=== PATIENT | female | born 1955 | race Caucasian/White ===

== ENCOUNTER → 2023-11-19 10:58 | Outpatient (REF) | payer MEDICARE, OTHER, SELFPAY ==
[2023-11-19 15:25] LABS: ALT (SGPT) 28 U/L (0-35); AST (SGOT) 28 U/L (14-36); Albumin 4.4 g/dl (3.5-5.0); Alkaline Phosphatase 92 U/L (38-126); Blood Urea Nitrogen 21 mg/dl (7-17); Carbon Dioxide 23 mmol/L (22-30); Chloride 104 mmol/L (98-107); Glucose 109 mg/dl (70-99); HDL Cholesterol 43 mg/dl; LDL Cholesterol, Calculated 73 mg/dl; Potassium 4.2 mmol/L (3.5-5.1); Sodium 135 mmol/L (135-145); Total Bilirubin 0.5 mg/dl (0.2-1.3); Total Cholesterol 149 mg/dl (50-199); Total Protein 6.7 g/dl (6.3-8.2); Triglyceride 165 mg/dl (10-149); Uric Acid 5.3 mg/dl (2.5-6.2); Very Low Density Lipoprotein 33 mg/dl (0-30); eGFR > 60.00
[2023-11-19 15:40] LABS: NT-proBNP 341 pg/ml
[2023-11-19 15:51] LABS: Microalbumin, Random Urine 1.3 mg/dl (0.6-1.7); Microalbumin/creatinine Ratio 5.7 mg/g
[2023-11-20 09:31] LABS: Glycohemoglobin (HgbA1c) 5.9 % (4.0-5.6)
[2023-11-23 09:54] LABS: Renin Activity Results 0.2 ng/mL/hr
== END ==
LOC: HWLAB 10:58
PROVIDERS: ATTENDING PHYSICIAN Internal Medicine Cardiovascular Disease; FAMILY PHYSICIAN Nurse Practitioner Primary Care; OTHER PHYSICIAN Internal Medicine Rheumatology; REFERRING PHYSICIAN Internal Medicine Cardiovascular Disease
DX: E11.9 Type 2 diabetes mellitus without complications (principal); N18.31 Chronic kidney disease, stage 3a; E53.8 Deficiency of other specified B group vitamins; E78.01 Familial hypercholesterolemia; R30.0 Dysuria; I42.2 Other hypertrophic cardiomyopathy; I10 Essential (primary) hypertension; I50.30 Unspecified diastolic (congestive) heart failure; Z86.39 Personal history of other endocrine, nutritional and metabolic disease; M10.9 Gout, unspecified
CPT/HCPCS: 36415; 80053; 80061; 82043; 82570; 83036; 83880; 84244; 84550; 87086

== ENCOUNTER → 2024-01-18 06:29 | Day surgery (SDC) | payer MEDICARE, OTHER, SELFPAY ==
[2024-01-18 07:08] LABS: Glucose - Point of Care 113 mg/dl (70-99)
== END ==
LOC: GI 06:29
PROVIDERS: ATTENDING PHYSICIAN Internal Medicine; FAMILY PHYSICIAN Nurse Practitioner Primary Care
DX: Z12.11 Encounter for screening for malignant neoplasm of colon (principal); K57.30 Diverticulosis of large intestine without perforation or abscess without bleeding; K64.9 Unspecified hemorrhoids; D12.3 Benign neoplasm of transverse colon; D12.4 Benign neoplasm of descending colon
CPT/HCPCS: 45385; 88305; 82962

== ENCOUNTER → 2024-04-24 11:11 | Outpatient (REF) | payer MEDICARE, OTHER, SELFPAY ==
[2024-04-24 15:54] LABS: ALT (SGPT) 27 U/L (0-35); AST (SGOT) 28 U/L (14-36); Albumin 4.5 g/dl (3.5-5.0); Alkaline Phosphatase 85 U/L (38-126); Blood Urea Nitrogen 21 mg/dl (7-17); Calcium 9.7 mg/dl (8.4-10.2); Carbon Dioxide 23 mmol/L (22-30); Chloride 102 mmol/L (98-107); Glucose 115 mg/dl (70-99); HDL Cholesterol 39 mg/dl; LDL Cholesterol, Calculated 84 mg/dl; Potassium 3.8 mmol/L (3.5-5.1); Sodium 135 mmol/L (135-145); Total Bilirubin 0.7 mg/dl (0.2-1.3); Total Cholesterol 162 mg/dl (50-199); Total Protein 6.8 g/dl (6.3-8.2); Triglyceride 198 mg/dl (10-149); Very Low Density Lipoprotein 39 mg/dl (0-30); eGFR > 60.00
[2024-04-24 16:10] LABS: Vitamin D, 25-OH*** 42.2 ng/mL (30-80)
[2024-04-24 16:11] LABS: Free T4 0.92 ng/dl (0.78-2.19)
[2024-04-24 16:13] LABS: % Basophils 0.8 % (0-2); % Eosinophils 2.3 % (0-6); % Immature Granulocytes 0.8 % (0-0.5); % Lymphocytes 24.9 % (20.5-51.1); % Monocytes 7.9 % (1.7-9.3); % Neutrophils 63.3 % (42.2-75.2); Absolute Eosinophils 0.1 10^3/uL (0-0.7); Absolute Monocytes 0.3 10^3/uL (0.1-0.6); Absolute Neutrophils 2.5 10^3/uL (1.4-6.5); Hematocrit 40.6 % (37.0-47.0); Hemoglobin 14.1 g/dL (12.0-16.0); Mean Corp Hgb Conc. 34.7 g/dL (33.0-37.0); Mean Corpuscular Hgb 29.6 pg (27.0-31.0); Mean Corpuscular Volume 85.1 fL (81.0-99.0); Nucleated Red Blood Cells % 0 %; Platelet Count 133 10^3/uL (130-400); Red Blood Cell Count 4.77 10^6/uL (4.20-5.40); Red Cell Dist. Width 13.4 % (11.5-14.5); White Blood Cell Count 3.9 10^3/uL (4.8-10.8)
[2024-04-24 17:04] LABS: TSH 2.03 uIU/ml (0.47-4.68)
[2024-04-25 12:30] LABS: Glycohemoglobin (HgbA1c) 5.6 % (4.0-5.6)
== END ==
LOC: HWLAB 11:11
PROVIDERS: ATTENDING PHYSICIAN Nurse Practitioner Primary Care
DX: I25.10 Atherosclerotic heart disease of native coronary artery without angina pectoris (principal); E78.01 Familial hypercholesterolemia; E03.8 Other specified hypothyroidism; E55.9 Vitamin D deficiency, unspecified; K21.9 Gastro-esophageal reflux disease without esophagitis; E11.9 Type 2 diabetes mellitus without complications
CPT/HCPCS: 36415; 80053; 80061; 82306; 83036; 84439; 84443; 85025

== ENCOUNTER → 2024-05-29 15:10 | Outpatient (REF) | payer MEDICARE, OTHER, SELFPAY | LOC: REG 15:10 | PROVIDERS: ATTENDING PHYSICIAN Nurse Practitioner Primary Care | DX: R19.7 Diarrhea, unspecified (principal) | CPT/HCPCS: 87045; 87046; 87324; 87328; 87329; 87427; 87449; 89055 ==

== ENCOUNTER → 2024-06-08 14:16 | Outpatient (REF) | payer MEDICARE, OTHER, SELFPAY ==
[2024-06-08 15:24] LABS: % Basophils 0.3 % (0-2); % Eosinophils 20.3 % (0-6); % Immature Granulocytes 0.3 % (0-0.5); % Lymphocytes 19.5 % (20.5-51.1); % Monocytes 4.5 % (1.7-9.3); % Neutrophils 55.1 % (42.2-75.2); Absolute Eosinophils 1.4 10^3/uL (0-0.7); Absolute Lymphocytes 1.4 10^3/uL (1.2-3.4); Absolute Monocytes 0.3 10^3/uL (0.1-0.6); Absolute Neutrophils 3.8 10^3/uL (1.4-6.5); Hematocrit 37.4 % (37.0-47.0); Hemoglobin 13.3 g/dL (12.0-16.0); Mean Corp Hgb Conc. 35.6 g/dL (33.0-37.0); Mean Corpuscular Hgb 29.7 pg (27.0-31.0); Mean Corpuscular Volume 83.5 fL (81.0-99.0); Mean Platelet Volume 12.8 fL (7.4-10.4); Nucleated Red Blood Cells % 0 %; Platelet Count 120 10^3/uL (130-400); Red Blood Cell Count 4.48 10^6/uL (4.20-5.40); Red Cell Dist. Width 13.6 % (11.5-14.5); White Blood Cell Count 6.9 10^3/uL (4.8-10.8)
[2024-06-08 16:24] LABS: ALT (SGPT) 25 U/L (0-35); AST (SGOT) 24 U/L (14-36); Albumin 4.2 g/dl (3.5-5.0); Alkaline Phosphatase 82 U/L (38-126); Blood Urea Nitrogen 20 mg/dl (7-17); Calcium 9.2 mg/dl (8.4-10.2); Carbon Dioxide 17 mmol/L (22-30); Chloride 105 mmol/L (98-107); Glucose 116 mg/dl (70-99); Magnesium 1.8 mg/dl (1.6-2.3); Potassium 3.6 mmol/L (3.5-5.1); Sodium 137 mmol/L (135-145); Total Bilirubin 0.5 mg/dl (0.2-1.3); Total Protein 6.3 g/dl (6.3-8.2); eGFR > 60.00
== END ==
LOC: RAD 14:16
PROVIDERS: ATTENDING PHYSICIAN Nurse Practitioner Primary Care
DX: S93.402A Sprain of unspecified ligament of left ankle, initial encounter (principal); M25.572 Pain in left ankle and joints of left foot; R19.7 Diarrhea, unspecified; R53.1 Weakness
CPT/HCPCS: 36415; 73610; 80053; 83735; 85025

== ENCOUNTER → 2024-06-09 14:11 | Outpatient (REF) | payer MEDICARE, OTHER, SELFPAY | LOC: HWWDC 14:11 | PROVIDERS: ATTENDING PHYSICIAN Nurse Practitioner Primary Care | DX: M85.89 Other specified disorders of bone density and structure, multiple sites (principal); Z12.31 Encounter for screening mammogram for malignant neoplasm of breast | CPT/HCPCS: 77063; 77067; 77080 ==

== ENCOUNTER → 2024-09-29 09:45 | Outpatient (REF) | payer MEDICARE, OTHER, SELFPAY ==
[2024-09-29 12:39] LABS: ALT (SGPT) 18 U/L (0-35); AST (SGOT) 20 U/L (14-36); Albumin 4.2 g/dl (3.5-5.0); Alkaline Phosphatase 86 U/L (38-126); Blood Urea Nitrogen 16 mg/dl (7-17); Calcium 9.1 mg/dl (8.4-10.2); Carbon Dioxide 26 mmol/L (22-30); Chloride 99 mmol/L (98-107); Glucose 79 mg/dl (70-99); HDL Cholesterol 41 mg/dl; LDL Cholesterol, Calculated 97 mg/dl; Potassium 4.2 mmol/L (3.5-5.1); Sodium 135 mmol/L (135-145); Total Bilirubin 0.3 mg/dl (0.2-1.3); Total Cholesterol 171 mg/dl (50-199); Total Protein 6.6 g/dl (6.3-8.2); Triglyceride 169 mg/dl (10-149); Very Low Density Lipoprotein 33 mg/dl (0-30); eGFR > 60.00
[2024-09-29 12:55] LABS: Glycohemoglobin (HgbA1c) 5.4 % (4.0-5.6)
== END ==
LOC: HWLAB 09:45
PROVIDERS: ATTENDING PHYSICIAN Nurse Practitioner Primary Care
DX: E11.9 Type 2 diabetes mellitus without complications (principal); N18.31 Chronic kidney disease, stage 3a
CPT/HCPCS: 36415; 80053; 80061; 83036

== ENCOUNTER → 2025-01-11 15:29 | Outpatient (REF) | payer MEDICARE, OTHER, SELFPAY ==
[2025-01-11 16:07] LABS: % Basophils 0.9 % (0-2); % Eosinophils 1.6 % (0-6); % Immature Granulocytes 0.2 % (0-0.5); % Lymphocytes 24.8 % (20.5-51.1); % Monocytes 6.9 % (1.7-9.3); % Neutrophils 65.6 % (42.2-75.2); Absolute Basophils 0.1 10^3/uL (0-0.2); Absolute Eosinophils 0.1 10^3/uL (0-0.7); Absolute Lymphocytes 1.4 10^3/uL (1.2-3.4); Absolute Monocytes 0.4 10^3/uL (0.1-0.6); Absolute Neutrophils 3.8 10^3/uL (1.4-6.5); Hematocrit 43.8 % (37.0-47.0); Hemoglobin 14.9 g/dL (12.0-16.0); Mean Corpuscular Hgb 29.9 pg (27.0-31.0); Mean Corpuscular Volume 87.8 fL (81.0-99.0); Mean Platelet Volume 12.3 fL (7.4-10.4); Nucleated Red Blood Cells % 0 %; Platelet Count 137 10^3/uL (130-400); Red Blood Cell Count 4.99 10^6/uL (4.20-5.40); Red Cell Dist. Width 13.8 % (11.5-14.5); White Blood Cell Count 5.8 10^3/uL (4.8-10.8)
[2025-01-11 16:13] LABS: Urine Albumin Negative (Neg - Trace); Urine Bilirubin Negative (Negative); Urine Character Clear (Clear); Urine Color Yellow; Urine Glucose Negative (Negative); Urine Ketone Negative (Negative); Urine Leukocyte 1+ (Negative); Urine Nitrite Negative (Negative); Urine Occult Blood Negative (Negative); Urine Urobilinogen Negative (Neg - 1+)
[2025-01-11 16:36] LABS: Free T4 1.26 ng/dl (0.78-2.19)
[2025-01-11 16:45] LABS: ALT (SGPT) 23 U/L (0-35); AST (SGOT) 23 U/L (14-36); Albumin 4.5 g/dl (3.5-5.0); Alkaline Phosphatase 73 U/L (38-126); Blood Urea Nitrogen 20 mg/dl (7-17); Calcium 9.9 mg/dl (8.4-10.2); Carbon Dioxide 29 mmol/L (22-30); Chloride 100 mmol/L (98-107); Glucose 90 mg/dl (70-99); Iron 90 ug/dl (37-170); Potassium 4.2 mmol/L (3.5-5.1); Sodium 138 mmol/L (135-145); Total Bilirubin 0.6 mg/dl (0.2-1.3); Total Protein 7.1 g/dl (6.3-8.2); Uric Acid 3.7 mg/dl (2.5-6.2); eGFR > 60.00
[2025-01-11 16:50] LABS: TSH 2.96 uIU/ml (0.47-4.68)
[2025-01-11 16:52] LABS: Microalbumin, Random Urine 0.6 mg/dl (0.6-1.7); Microalbumin/creatinine Ratio 7.9 mg/g
[2025-01-11 16:54] LABS: Ferritin 29.1 ng/ml (11.1-264.0)
[2025-01-11 16:55] LABS: Percent Saturation 23 % (20-50); Total Iron Binding Capacity 382 ug/dl (265-497)
[2025-01-11 17:01] LABS: Urine Bacteria Few (Negative); Urine Red Blood Cell 0-2 /HPF (0-2); Urine Squamous Cell 21-25 /LPF (Few)
[2025-01-11 17:26] LABS: Folate 9.4 ng/ml (2.76-20); Vitamin B12 549 pg/ml (239-931)
[2025-01-12 12:18] LABS: Glycohemoglobin (HgbA1c) 5.4 % (4.0-5.6)
== END ==
LOC: REG 15:29
PROVIDERS: ATTENDING PHYSICIAN Nurse Practitioner Primary Care
DX: E11.9 Type 2 diabetes mellitus without complications (principal); I25.10 Atherosclerotic heart disease of native coronary artery without angina pectoris; E53.8 Deficiency of other specified B group vitamins; Z79.899 Other long term (current) drug therapy; N18.31 Chronic kidney disease, stage 3a; E03.8 Other specified hypothyroidism; M1A.49X0 Other secondary chronic gout, multiple sites, without tophus (tophi); R53.83 Other fatigue
CPT/HCPCS: 36415; 80053; 81003; 81015; 82043; 82570; 82607; 82728; 82746; 83036; 83540; 83550; 84439; 84443; 84550; 85025; 87086

== ENCOUNTER → 2025-05-11 08:59 | Outpatient (REF) | payer MEDICARE, OTHER, SELFPAY | LOC: HWLAB 08:59 | PROVIDERS: ATTENDING PHYSICIAN Internal Medicine Cardiovascular Disease; FAMILY PHYSICIAN Nurse Practitioner Primary Care; REFERRING PHYSICIAN Internal Medicine Cardiovascular Disease | DX: I42.2 Other hypertrophic cardiomyopathy (principal) | CPT/HCPCS: 36415; 83880 ==

== ENCOUNTER → 2025-06-07 10:50 | Outpatient (REF) | payer MEDICARE, OTHER, SELFPAY ==
[2025-06-07 13:41] LABS: HDL Cholesterol 42 mg/dl; LDL Cholesterol, Calculated 106 mg/dl; Very Low Density Lipoprotein 24 mg/dl (0-30)
== END ==
LOC: HWLAB 10:50
PROVIDERS: ATTENDING PHYSICIAN Internal Medicine Cardiovascular Disease; FAMILY PHYSICIAN Nurse Practitioner Primary Care; REFERRING PHYSICIAN Internal Medicine Cardiovascular Disease
DX: E78.019 Familial hypercholesterolemia, unspecified (principal); E11.9 Type 2 diabetes mellitus without complications
CPT/HCPCS: 36415; 80061

== ENCOUNTER 2025-07-01 20:00 | Inpatient (IN) | payer MEDICARE, OTHER, SELFPAY ==
[2025-07-01] VITALS (14 sets, daily range): BP systolic 117–161; BP diastolic 74–95; PULSE 114
--- NOTE | 2025-07-01 13:12 | ED.GENMED ---
History of Present Illness
<Eliza Ortiz PA-C - Last Filed: 07/01/25 18:53>
General
Chief Complaint: Dizziness
Source: patient
Exam Limitations: none
Time Seen by Provider: 07/01/25 12:41
History of Present Illness
History of Present Illness:
69yoF with a history of hypertrophic cardiomyopathy, coronary artery disease, hypertension, hyperlipidemia, type 2 diabetes, hypothyroidism, and ANA presenting via EMS for evaluation of dizziness. Patient had vertigo yesterday morning which
resolved spontaneously. She tried to get out of bed this morning around 9am when her dizziness recurred. It feels like the room is spinning. Symptoms are worse with head movement and resolves if keeps her head still. She had two episodes of
vomiting as well. She states she was unable to ambulate due to the dizziness and was crawling on the floor. She has a history of vertigo but symptoms have never been this severe before. Her prior episodes of vertigo were related to migraines and
she denies any headache currently. No chest pain, shortness of breath, ear pain, tinnitus, recent illness. Home COVID and flu testing were negative.
Past History
<Eliza Ortiz PA-C - Last Filed: 07/01/25 18:53>
Past History
ED Past Medical History: HTN, Hypercholesterolemia, Hypothyroidism, Psychiatric (Depression) and Other (HOCM)
ED Past Surgical History: None
Social History
Tobacco: Non-smoker
Alcohol: None
Drug: None
Personal:
Living: with family
Phy Exam
<Eliza Ortiz PA-C - Last Filed: 07/01/25 18:53>
Physical Exam
Physical Exam:
In left lateral recumbent position with eyes closed
General Physical Exam
General Presentation: no apparent distress
General Skin: warm and dry
General Habitus: normal
General Mental: alert
ENT Exam
ENT Exam: TM's normal and normocephalic
Eye Exam
Eye Exam: PERRL, EOMI and conjunctiva normal
Cardiovascular Exam
Cardiovascular Exam: irregularly irregular
Pulmonary Exam
Pulmonary Exam: lungs clear, no respiratory distress, no rales, no crackles, no rhonchi and no wheezing
Neurological Exam
Neurological Exam: alert, speech normal and other (Normal finger to nose and heel to beltran bilaterally)
[place] Coma Scale
Eye Opening: Spontaneous
Verbal Response: Oriented
Motor Response: Obeys Commands
GCS Total Score: 15
Skin Exam
Skin Exam: normal color and warm/dry
Psychiatric Exam
Psychiatric Exam: normal mood/affect
Course
<Eliza Ortiz PA-C - Last Filed: 07/01/25 18:53>
Orders/Labs/Results
Orders:
Orders
07/01/25 12:36
EKG [Electrocardiogram (*1)] Urgent
Reason for Study: Chest Pain
EKG- Treatment ONCE
07/01/25 12:54
CT Head W/o Iv Contrast Urgent
Comment:
Reason For Exam: vertigo
0.9% Sodium Chloride 1000 ml [Nss] 1,000 ml IV BOLUS
Meclizine [Antivert] 25 mg PO NOW STA
07/01/25 12:57
Complete Blood Count/With Diff Urgent
Comprehensive Metabolic Panel Urgent
Magnesium Urgent
Comment: ADD ON
TSH Urgent
Comment: ADD ON
07/01/25 13:05
Physical Therapy Consult [Pt Eval And Treat] Urgent
Treatment: vertigo and vestibular eval
Activity Level: As Tolerated
07/01/25 13:35
Add On- LAB Urgent
Tests Added?: magnesium, TSH
07/01/25 14:43
Metoprolol [Lopressor] 5 mg IV NOW STA
07/01/25 15:11
Ondansetron Injectable [Zofran] 4 mg IV NOW STA
07/01/25 15:17
Troponin I Urgent
07/01/25 15:20
diazePAM [Valium Injection] 2 mg IV NOW STA
07/01/25 15:30
0.9% Sodium Chloride 500 ml [Nss] 500 ml IV BOLUS
07/01/25 15:35
Electrocardiogram (*1) Urgent
Reason for Study: Vertigo / Dizzy
EKG- Treatment ONCE
Abnormal Lab Results
07/01/25
12:57
Plt Count 123 L 10^3/uL
(130-400)
MPV 12.2 H fL
(7.4-10.4)
Absolute Lymphs (auto) 1.0 L 10^3/uL
(1.2-3.4)
Neutrophils % 76.3 H %
(42.2-75.2)
Lymphocytes % 17.4 L %
(20.5-51.1)
Sodium 133 L mmol/L
(135-145)
Carbon Dioxide 19 L mmol/L
(22-30)
Glucose 156 H mg/dl
(70-99)
07/01/25 12:57
07/01/25 12:57
Vital Signs
Initial and Last Documented VS:
Initial Vital Signs
Pulse Resp BP Pulse Ox
70 20 161/82 100
07/01/25 11:59 07/01/25 11:59 07/01/25 11:59 07/01/25 11:59
Last Documented Vital Signs
Pulse Resp BP Pulse Ox
86 21 129/87 100
07/01/25 16:15 07/01/25 16:15 07/01/25 16:00 07/01/25 13:14
<Grover Lucio MD - Last Filed: 07/01/25 16:39>
Orders/Labs/Results
Orders:
Orders
07/01/25 12:36
EKG [Electrocardiogram (*1)] Urgent
Reason for Study: Chest Pain
EKG- Treatment ONCE
07/01/25 12:54
CT Head W/o Iv Contrast Urgent
Comment:
Reason For Exam: vertigo
0.9% Sodium Chloride 1000 ml [Nss] 1,000 ml IV BOLUS
Meclizine [Antivert] 25 mg PO NOW STA
07/01/25 12:57
Complete Blood Count/With Diff Urgent
Comprehensive Metabolic Panel Urgent
Magnesium Urgent
Comment: ADD ON
TSH Urgent
Comment: ADD ON
07/01/25 13:05
Physical Therapy Consult [Pt Eval And Treat] Urgent
Treatment: vertigo and vestibular eval
Activity Level: As Tolerated
07/01/25 13:35
Add On- LAB Urgent
Tests Added?: magnesium, TSH
07/01/25 14:43
Metoprolol [Lopressor] 5 mg IV NOW STA
07/01/25 15:11
Ondansetron Injectable [Zofran] 4 mg IV NOW STA
07/01/25 15:17
Troponin I Urgent
07/01/25 15:20
diazePAM [Valium Injection] 2 mg IV NOW STA
07/01/25 15:30
0.9% Sodium Chloride 500 ml [Nss] 500 ml IV BOLUS
07/01/25 15:35
Electrocardiogram (*1) Urgent
Reason for Study: Vertigo / Dizzy
EKG- Treatment ONCE
Abnormal Lab Results
07/01/25
12:57
Plt Count 123 L 10^3/uL
(130-400)
MPV 12.2 H fL
(7.4-10.4)
Absolute Lymphs (auto) 1.0 L 10^3/uL
(1.2-3.4)
Neutrophils % 76.3 H %
(42.2-75.2)
Lymphocytes % 17.4 L %
(20.5-51.1)
Sodium 133 L mmol/L
(135-145)
Carbon Dioxide 19 L mmol/L
(22-30)
Glucose 156 H mg/dl
(70-99)
07/01/25 12:57
07/01/25 12:57
Vital Signs
Initial and Last Documented VS:
Initial Vital Signs
Pulse Resp BP Pulse Ox
70 20 161/82 100
07/01/25 11:59 07/01/25 11:59 07/01/25 11:59 07/01/25 11:59
Last Documented Vital Signs
Pulse Resp BP Pulse Ox
86 21 129/87 100
07/01/25 16:15 07/01/25 16:15 07/01/25 16:00 07/01/25 13:14
<Eliza Ortiz PA-C - Last Filed: 07/01/25 18:53>
MDM/Problems Addressed
Differential Diagnosis Includes:
69yoF here with dizziness. Feels like room is spinning. Associated with n/v. Hx of vertigo in the past but this is more several. No obvious nystagmus noted. No ataxia with finger to nose or heel to beltran. Differential diagnosis includes: BPPV,
vestibular neuronitis, CVA, migraine
Initial ED plan: Check CBC, CMP, EKG, and CT head. Meclizine and fluid bolus for symptoms. Will consult PT for vestibular evaluation if CT head negative.
<Eliza Ortiz PA-C - Last Filed: 07/01/25 18:53>
*Pulse Oximetry
SaO2: 100
Oxygen Mode of Delivery: Room air
Patient hypoxic: no
*EKG
Interpreted by ED Provider?: Yes
EKG Intrepretation Date: 07/01/25
Heart Rate: 94
Rate: normal
Rhythm: a-fib
[place]: normal axis
Interval: normal interval
QRS Pattern: normal QRS
Ischemia: non-specific ST changes
*Critical Care Note
Total Time (30-74mins, 75-104mins- exclusive of procedures): Not Applicable
<Eliza Ortiz PA-C - Last Filed: 07/01/25 18:53>
Update Note
Update Note:
EKG shows afib and she has no prior history of this. ST changes noted that appear similar to prior EKGs. Magnesium, TSH, and troponin added which are normal. CT head negative for acute findings. Patient evaluated by PT and Van Hallpike testing was
positive on the left. Patient required 5mg IV Lopressor for tachycardia. Suspect BPPV/peripheral vertigo although with persistent symptoms and new onset afib, will admit for further evaluation.
ED Attending Note
<Eliza Ortiz PA-C - Last Filed: 07/01/25 18:53>
-
Portions of this chart may have been created with voice recognition software.� Occasional wrong word or��sound alike� substitutions may have occurred due to the inherent limitations of voice recognition software.
<Grover Lucio MD - Last Filed: 07/01/25 16:39>
ED Attending Note
Patient seen and examined by attending physician: Yes
ED Attending Note:
I have seen and evaluated the patient with a encr-lv-ctio encounter. I have spoken to the advance practicer provider and involved in the medical history, the physical exam, medical decision making.
Evaluation and management service: agree unless noted differently below.
Results interpretation: agree unless noted differently below.
Focused HPI: 69-year-old female with history as noted presents to the ER for evaluation of dizziness. She says that she had an episode of dizziness yesterday but this morning woke up with intense room spinning sensation associated with nausea and
vomiting. She has had vertigo in the past but never to this degree. Came to the ER for assessment. Her symptoms are much worse with movement. No relieving factors. She denies any other acute complaints including chest pain, shortness of breath,
headache, weakness or numbness in the extremities.
Physical exam: Awake and alert, holding emesis bag and sitting very still. She has tachycardia with irregularly irregular rhythm on cardiac auscultation. Lungs sound clear. She has rightward fatigable nystagmus, no vertical or rotary nystagmus.
Cranial nerves are intact. Motor and sensory intact in all extremities. No edema in the legs.
Medical Decision Makin-year-old female presents with severe vertiginous symptoms. Tachycardic but otherwise normal vitals. Exam as above. EKG on arrival shows A-fib with RVR�this is a new diagnosis for the patient. She says she has PVCs and
follows routinely with Dr. Thurston but has never had A-fib. Overall however his symptoms seem most consistent with peripheral vertigo but given new onset A-fib stroke obviously should be ruled out. Will plan to treat symptomatically. CT head
was negative here. Will admit for continued monitoring and treatment. Discussed with hospitalist.
Discharge Plan
Departure
Patient Disposition: Admit
Date of Disposition: 07/01/25
Time of Disposition: 15:00
Presentation/result/management discussed w/ accepting MD/DO: Hospitalist
Discharge Problem:
New onset atrial fibrillation, Vertigo
Prescriptions:
No Action
montelukast 10 MG tablet
10 mg PO HS
allopurinol 300 MG tablet
300 mg PO HS
metoprolol succinate 50 mg tablet extended release 24 hr
50 mg PO DAILY
aspirin 81 mg Tablet,Delayed Release (Dr/Ec)
81 mg PO DAILY
levothyroxine 88 mcg Tablet
88 mcg PO DAILY
metoprolol succinate 25 mg tablet extended release 24 hr
25 mg PO QPM
acetaminophen [Tylenol] 325 mg Tablet
650 mg PO Q6HPRN PRN (Reason: mild pain)
sertraline 100 mg Tablet
50 mg PO DAILY
pantoprazole [Protonix] 40 mg Tablet,Delayed Release (Dr/Ec)
40 mg PO DAILY
Repatha SureClick 140 mg/mL Pen Injector
140 mg SC Q2W
Referrals:
Ines Partida CRNP [Family Provider, Internal Medicine]
Discharge Date and Time
Print Language: JAPANESE
[2025-07-01 13:14] LABS: Hematocrit 42.5 % (37.0-47.0); Hemoglobin 14.5 g/dL (12.0-16.0); Mean Corp Hgb Conc. 34.1 g/dL (33.0-37.0); Mean Corpuscular Volume 87.3 fL (81.0-99.0); Nucleated Red Blood Cells % 0 %; Platelet Count 123 10^3/uL (130-400); Red Cell Dist. Width 13.0 % (11.5-14.5)
[2025-07-01 13:25] LABS: ALT (SGPT) 21 U/L (0-35); AST (SGOT) 20 U/L (14-36); Albumin 4.5 g/dl (3.5-5.0); Alkaline Phosphatase 75 U/L (38-126); Blood Urea Nitrogen 15 mg/dl (7-17); Calcium 9.5 mg/dl (8.4-10.2); Carbon Dioxide 19 mmol/L (22-30); Chloride 106 mmol/L (98-107); Glucose 156 mg/dl (70-99); Potassium 4.0 mmol/L (3.5-5.1); Sodium 133 mmol/L (135-145); Total Protein 6.9 g/dl (6.3-8.2); eGFR > 60.00
[2025-07-01 13:49] LABS: Magnesium 2.0 mg/dl (1.6-2.3)
[2025-07-01 14:32] LABS: TSH 1.59 uIU/ml (0.47-4.68)
[2025-07-01] MEDS: ZOFRAN 4 MG IV (15:14)
[2025-07-01] MEDS: LOPRESSOR 5 MG IV (15:15)
[2025-07-01] MEDS: NSS 1000 IV ×2 (15:16→21:54)
--- NOTE | 2025-07-01 15:36 | HPS.HSE ---
Addendum entered and electronically signed by Indiana Amador MD 07/01/25 20:46:
I saw and evaluated the patient independently. I reviewed and discussed the resident�s note and agree with findings and plan as documented by Dr. Paz.
GENERAL: well developed, well nourished, female in no apparent distress
HEENT: NC/AT, + nystagmus
HEART: regular rate and rhythm, +S1, +S2
LUNGS : clear to auscultation bilaterally
ABDOM: soft, nontender, nondistended, + bowel sounds
EXT: no cyanosis, clubbing, or edema
NEUROLOGIC: grossly intact, nonfocal
Allergies
Allergy/AdvReac Type Severity Reaction Status Date / Time
amoxicillin trihydrate (From Allergy Rash, pain Verified 07/01/25 12:03
Augmentin) iin muscles
simvastatin (From Zocor) Allergy leg pain Verified 07/01/25 12:03
Aquacell Allergy Systemic Uncoded 07/01/25 12:03
rash,
itching
Home Medications
montelukast 10 mg tablet 10 mg PO HS Lung/breathing issues 02/01/19
allopurinol 300 mg tablet 300 mg PO HS Gout 01/29/21
aspirin 81 mg tablet,delayed release 81 mg PO DAILY Blood Clot Prevention/Tx 03/25/23
levothyroxine 88 mcg tablet 88 mcg PO DAILY Thyroid 03/25/23
metoprolol succinate 25 mg tablet,extended release 24 hr 25 mg PO QPM Blood Pressure 03/25/23
metoprolol succinate 50 mg tablet,extended release 24 hr 50 mg PO DAILY Blood Pressure 03/25/23
acetaminophen 325 mg tablet (Tylenol) 650 mg PO Q6HPRN PRN mild pain 07/01/25
evolocumab 140 mg/mL subcutaneous pen injector (Repatha SureClick) 140 mg SC Q2W High Cholesterol 07/01/25
pantoprazole 40 mg tablet,delayed release (Protonix) 40 mg PO DAILY gerd 07/01/25
sertraline 100 mg tablet 50 mg PO DAILY Depression 07/01/25
Dizziness--sounds very much like BPPV--other considerations are posterior CVA, vestibular neuritis, Meniere's disease, schwannoma, new onset afib--head CT neg--check brain MRI for completeness, PT/OT, IV valium, meclizine--IVF
New Onset A Fib--check TSH--check ECHO, troponin--spontaneously converted back to sinus rhythm--check ECHO, consult cards--consideration for IV heparin drip
Type 2 DM--Mounjaro not on formulary--SSI, check HGB A1C
GERD--Cont Protonix
HoCM -- cont Camzyos--(left off home med list--pt may take her own)
ANA--CPAP, pt may take her own
Hypothyroidism--Cont Levothyroxine
Gout--Cont Allopurinol
Constipation--Miralax Daily--Colace Daily
DVT proph
CODE STATUS-- Full code
Original Note:
Family Physician
-
Family Physician: Ines Partida
Chief Complaint
-
Dizziness
History of Present Illness
69 y/o F with a PMHx of hypertrophic cardiomyopathy, CAD, HTN, HLD, Type 2 DM, hypothyroidism, and ANA presenting via EMS for evaluation of dizziness. Patient had vertigo yesterday morning which resolved spontaneously. She tried to get out of bed
this morning around 9am when her dizziness recurred. It feels like the room is spinning. Symptoms are worse with head movement and resolves if keeps her head still. She had two episodes of vomiting as well. She states she was unable to ambulate
due to the dizziness and was crawling on the floor. Her BP (140/79), HR (79) and Glucose (147) was measured a little after this incident occurred. She has a history of vertigo but symptoms have never been this severe before. Her prior episodes of
vertigo were related to migraines and she denies any headache currently. No chest pain, shortness of breath, ear pain, tinnitus, recent illness. Home COVID and flu testing were negative.
Medical History
Past Medical History
Past Medical History: Reports HTN, Hypercholesterolemia, Hypothyroidism, Psychiatric (Depression) and Other (HOCM)
Past Surgical History: Reports None
Social History
Tobacco: Non-smoker
Alcohol: None
Drug: None
Personal:
Living: With Family
Family History
Family History: Early CAD (Both grandfather and father in their 50 from [place].)
Allergies / Home Medications
Allergies reflects when Allergies were last updated in [facility].
Home Medications with original date entered in [facility]
Allergy/Medication List:
Allergies: Augmentin
Home Medications:
Acetaminophen 650 mg (Mild pain)
Aspirin 81 mg PO Daily (Blood Clot PPx and Tx)
Metoprolol Succinate 50 mg PO Daily (BP)
Camyzos (Mavacamten) (Treats HCM)
Levothyroxine 88 mcg PO Daily (Hypothyroidism)
Allopurinol 300 mg PO HS (Gout)
Mounjaro
Repatha (Evolocumab) 140 mg (High Cholesterol)
Protonix 40 mg PO Daily (GERD)
Visiting Medications:
NSS 500 mls @500 mls/hr IV Bolus (Once)
Diazepam 2mg IV
Odansetron Hcl 4 mg IV
Metoprolol Tartrate (Lorpressor) 5 mg
Meclizine Hcl 25 mcg PO
Review of Systems
-
History Source: Patient
A 12 point ROS was completed and negative except as noted: Yes
Physical Exam
Vital Signs
Vital Signs
Pulse Resp BP Pulse Ox
123 20 130/95 100
07/01/25 15:15 07/01/25 11:59 07/01/25 15:15 07/01/25 13:14
Physical Exam
General: Well Developed, Well Nourished, No Apparent Distress, Comfortable and Conversant
HEENT: NormoCephalic, Anicteric, Moist mucous membranes and Atraumatic
Respiratory: Clear
Cardiac: S1/S2 and Murmur (Systolic Ejection)
Breast: Deferred by me
GI: Soft, Non Tender, Non Distended and Normal Bowel Sounds
Rectal: Deferred by Provider
Genito-urinary: Deferred by me
Skin: Warm and Dry
Neuro: AO x 3
Psych: Calm and Intact Judgment/Insight
Laboratory Results
-
07/01/25 12:57
07/01/25 12:57
Laboratory Results
Total Bilirubin 0.7 mg/dl (0.2-1.3) 07/01/25 12:57
AST 20 U/L (14-36) 07/01/25 12:57
ALT 21 U/L (0-35) 07/01/25 12:57
Alkaline Phosphatase 75 U/L (38-126) 07/01/25 12:57
EKG:
ATRIAL FIBRILLATION
MODERATE VOLTAGE CRITERIA FOR LVH, MAY BE NORMAL VARIANT ( R in aVL , Jelm
product )
ST and T WAVE ABNORMALITY, CONSIDER LATERAL ISCHEMIA
QTcB >= 480 msec
ABNORMAL ECG
CT Head W/o IV Contrast:
No acute intracranial abnormality.
TSH:
1.59 WNL
PT Consult
Magnesium:
2.0 WNL
Pelvis & Transvaginal US
Data Reviewed
-
CT Scan: Report Reviewed by me and Discussed with Physician
Lab Data: Labs Reviewed by me and Discussed with Physician
Impression/Plan
-
IMPRESSION:
69 y/o F with a PMHx of hypertrophic cardiomyopathy, CAD, HTN, HLD, Type 2 DM, hypothyroidism, and ANA presenting via EMS for evaluation of dizziness. Patient had vertigo yesterday morning which resolved spontaneously. She tried to get out of bed
this morning around 9am when her dizziness recurred. It feels like the room is spinning. Symptoms are worse with head movement and resolves if keeps her head still. She had two episodes of vomiting as well. She states she was unable to ambulate
due to the dizziness and was crawling on the floor. Her BP (140/79), HR (79) and Glucose (147) was measured a little after this incident occurred. She has a history of vertigo but symptoms have never been this severe before. Her prior episodes of
vertigo were related to migraines and she denies any headache currently. No chest pain, shortness of breath, ear pain, tinnitus, recent illness. Home COVID and flu testing were negative.
PLAN:
Patient is moved to the telemetry floor because she is back in normal sinus rhythm.
#Dizziness:
Could be due to a number of conditions such as BPPV, vestibular neuritis, menieres, ototoxicity, vestibular schwanomma, the new onset A-fib itself as well as dehydration, or hypoglycemia.
-Order MRI Brain w/o Contrast
-Continue Meclizine
-PT Consult Orders (Suggest they try Van Hallpike and Teo Maneuvers)
-Continue IV Fluids
#New Onset A Fib
-EKG
-Trend Troponins
-If not rate controlled (Cardazene drip)--Consult Cardio
-Order Echo
-Start IV Heparin drop
#Type 2 DM
-Start sliding scale insulin
-Check HbA1C
#GERD
-Cont. Protonix
#HOCM
- Continue Camyros
#Hypothyroidism
-Cont. Levothyroxine
#Gout
-Cont Allopurinol
#ANA
-Needs CPAP
#Constipation
-Miralax Daily
-Colace Daily
#Diet
-Unrestricted
DVT: Heparin Drip
CODE: Full Status
[2025-07-01] MEDS: NSS 500 IV (16:05)
[2025-07-01 16:10] LABS: Troponin I < 0.012 ng/ml
[2025-07-01] MEDS: VALIUM INJECTION 2 MG IV (16:55)
[2025-07-01 21:54] LABS: Troponin I < 0.012 ng/ml
[2025-07-01] MEDS: ZYLOPRIM 300 MG PO (21:54)
[2025-07-01] MEDS: SINGULAIR 10 MG PO (21:54)
[2025-07-01 22:00] LABS: Glucose - Point of Care 109 mg/dl (70-99)
--- NOTE | 2025-07-02 00:34 | TRANSFER ---
Pt transferred to 3W from ed via stretcher. Pt ambulated to hospital bed. AAOx3, Pt oriented to room, call [place] within reach, plan of care ongoing.
[2025-07-02] MEDS: HEPARIN 5000 UNITS SC ×2 (01:11→10:08)
[2025-07-02 03:00] VITALS: BP 138/93
[2025-07-02 03:52] LABS: Troponin I 0.013 ng/ml
[2025-07-02] MEDS: SYNTHROID 88 MCG PO (06:06)
[2025-07-02 07:00] VITALS: BP 152/85
--- NOTE | 2025-07-02 08:01 | CON.CAR ---
Addendum entered and electronically signed by Grover Petit MD 07/02/25 17:23:
I saw and evaluated the patient with the resident, Dr. Brandon James. I was present for the childs portions of the history and exam and personally performed the MDM, including reviewing labs, assessing Kristie Terrell, and directing management plan. I
agree with the residents note with my comments/adjustments below:
77-year-old with obstructive hypertrophic cardiomyopathy on Camzyos who was admitted with vertigo from benign positional variant. She is improved with repositioning maneuvers. A-fib was noted in the ER and she spontaneously converted to sinus
rhythm. First known A-fib episode. No bradycardia with conversion to sinus. No palpitations and no syncope.
PAF. We do not use risk scores and hypertrophic cardiomyopathy as hypertrophic or indicated for anticoagulation if they have atrial fibrillation. I reviewed the risks, benefits, and alternatives to oral anticoagulant therapy. I reviewed signs and
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 I reviewed actions to take. We will stop her aspirin and initiate Eliquis 5 twice daily. The patient verbalized understanding. She understands Eliquis has a bit more bleeding than an
aspirin a day but has not been shown to have significantly higher intracranial hemorrhage rate or bleeding and an aspirin a day. In terms of symptom control does not appear that we need to intensify treatment at this time. If she becomes
symptomatic from A-fib ablation will be a good choice. If an antiarrhythmic medication is chosen amiodarone will be the best choice given her underlying structural heart disease. Other medications are typically avoided. I reviewed A-fib risk factor
modification. She does not drink alcohol. She is working on BMI reduction. She knows to increase the intensity and frequency of exercise. Sleep apnea is already under good treatment.
Hypertrophic cardiomyopathy: She apparently had a good response with Camzyos and she is tolerating that medication well. Atrial fibrillation has been described in patients taking Camzyos but the medication is not felt to be a significant contributor.
HTN: Continue medical therapy.
Her aortic valve disease will be followed by serial echocardiograms.
Thank you for having us see this patient in consultation.
Original Note:
Consultation
Consultation Request
Date/Time Consultation Requested: 07/01/2025; 20:40
Date/Time Consultation Performed: 07/02/2025; 08:00
Requesting Provider: Dr. Chris Paz
Performing Provider: Dr. Grover Petit; Dr. Brandon James
Reason for Consultation: afib
Medical History
-
Chief Complaint: dizziness, atrial fibrillation
History of Present Illness:
69 yo F PMH HOCM, CAD, HTN, HLD, T2DM, nonrheumatic aortic valve stenosis, ocular migraine, obesity, ANA, hypothyroidism p/w dizziness of 2 days duration.
She first reports mild room spinning Wednesday morning when changing positions. However, she reports severe vertigo Wednesday morning (yesterday) upon awakening from bed and when she gets up / changes her position. She states that this is room spinning
and not lightheadedness/presyncope. Relief was with lying down flat. She endorses nausea and vomiting a/w the vertigo. She endorses longstanding tinnitus.
This prompted her to present to ED and vertigo severity required transport via ambulance. In the ED, CT head noncon showed no acute intracranial abnormality. A vestibular therapist was consulted who performed Van/Hallpike & Teo maneuver with
goggles and confirmed BPPV diagnosis.
However, during her admission, an initial EKG in ED was performed and disclosed atrial fibrillation that spontaneously resolved with a repeat EKG a few hours later.
She denies chest pain, palpitations, dyspnea. Denies presyncope/syncope. Denies sick symptoms or sick contacts. Denies travel. She did report that she slept fewer hours on evening but otherwise slept well Wed-Sun.
PMH of ANA and closely adheres to CPAP
PMH of HOCM (follows at [facility]) and is on mavacamtem.
Social Hx: caffeinated hot chocolate/coca cola, increased usage due to colder seasons, never EtOH, never smoker, no recreational drugs
Past Medical History
Past Medical History: CAD, HTN, Hypercholesterolemia, Hypothyroidism, NIDDM, Valvular Disease (nonrheumatic aortic valve stenosis) and Other (HOCM, obesity, hypothyroidism, melanoma)
Past Surgical History: Orthopedic (right and left total knee arthroplasty) and Other (melanoma resection (2013, 2023); cataract)
Social History
Tobacco: Non-Smoker
Alcohol: None
Drug: None
Personal:
Living: With Family
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
Family History
Family History: CAD (father: fatal [place] at 53; paternal grandfather: [place] at 54), Diabetes (maternal grandmother) and Hypertension (Mother)
Allergies / Home Medications
Allergy/AdvReac Type Severity Reaction Status Date / Time
amoxicillin trihydrate (From Allergy Rash, pain Verified 07/01/25 12:03
Augmentin) iin muscles
simvastatin (From Zocor) Allergy leg pain Verified 07/01/25 12:03
Aquacell Allergy Systemic Uncoded 07/01/25 12:03
rash,
itching
�Medication �Instructions �Recorded �Confirmed �Type
montelukast 10 mg tablet 10 mg PO HS Lung/breathing issues 02/01/19 07/01/25 History
allopurinol 300 mg tablet 300 mg PO HS Gout 01/29/21 07/01/25 History
aspirin 81 mg tablet,delayed 81 mg PO DAILY Blood Clot 03/25/23 07/01/25 History
release Prevention/Tx
levothyroxine 88 mcg tablet 88 mcg PO DAILY Thyroid 03/25/23 07/01/25 History
metoprolol succinate 25 mg 25 mg PO QPM Blood Pressure 03/25/23 07/01/25 History
tablet,extended release 24 hr
metoprolol succinate 50 mg 50 mg PO DAILY Blood Pressure 03/25/23 07/01/25 History
tablet,extended release 24 hr
acetaminophen 325 mg tablet 650 mg PO Q6HPRN PRN mild pain 07/01/25 07/01/25 History
(Tylenol)
evolocumab 140 mg/mL subcutaneous 140 mg SC Q2W High Cholesterol 07/01/25 07/01/25 History
pen injector (Repatha SureClick)
mavacamten 5 mg capsule (Camzyos) 5 mg PO DAILY Heart 07/01/25 07/01/25 History
Disease/Condition
pantoprazole 40 mg tablet,delayed 40 mg PO DAILY gerd 07/01/25 07/01/25 History
release (Protonix)
sertraline 100 mg tablet 50 mg PO DAILY Depression 07/01/25 07/01/25 History
Review of Systems
-
History Source: Patient
Constitutional: No Symptoms
EENT: No Symptoms and Other (endorses long standing tinnitus; potentially decreased hearing ability)
Respiratory: No Symptoms
Cardiac: No Symptoms and Other (denies palpitations)
Abdomen/GI: No Symptoms
Musculoskeletal: No Symptoms
Skin: No Symptoms
Neurological: Dizzy and Headache
Physical Exam
Vital Signs
Temp Pulse Resp BP Pulse Ox
97.6 F 74 19 152/85 99
07/02/25 07:00 07/02/25 07:00 07/02/25 07:00 07/02/25 07:00 07/02/25 07:00
Telemetry review:
NSR (no alarms)
Lab Results
Troponin I 0.013 ng/ml 07/02/25 03:01
Hgb 14.5
Na 133
K 4.0
Cr 0.7
Ca 9.5
Mg 2.0
Troponin: <0.012 --> <0.012 --> 0.013
TSH: 1.59
EK07/01/2025; 12:36
Vent. Rate : 94 BPM Atrial Rate : * BPM
P-R Int : * ms QRS Dur : 110 ms
QT Int : 384 ms P-R-T Axes : * -1 195 degrees
QTcB Int : 480 ms
ATRIAL FIBRILLATION
MODERATE VOLTAGE CRITERIA FOR LVH, MAY BE NORMAL VARIANT ( R in aVL , Lane
product )
ST and T WAVE ABNORMALITY, CONSIDER LATERAL ISCHEMIA
QTcB >= 480 msec
EK07/01/2025; 15:35
Vent. Rate : 81 BPM Atrial Rate : 81 BPM
P-R Int : 162 ms QRS Dur : 108 ms
QT Int : 414 ms P-R-T Axes : 46 -6 73 degrees
QTcB Int : 480 ms
NORMAL SINUS RHYTHM
POSSIBLE LEFT ATRIAL ENLARGEMENT
LEFT VENTRICULAR HYPERTROPHY WITH REPOLARIZATION ABNORMALITY ( R in aVL ,
Lane product )
CT Head noncon 07/01/2025 12:54
FINDINGS:
Unenhanced CT imaging of the head reveals no findings to suggest recent infarction, intracranial hemorrhage, extra-axial fluid collection, mass effect or midline shift. The ventricles, cisterns and sulci are slightly prominent commensurate with age.
The brainstem and posterior fossa structures demonstrate no significant focal abnormality.
IMPRESSION:
No acute intracranial abnormality.
Physical Exam
General: Comfortable
HEENT: Normocephalic
Respiratory: Clear
Cardiac: Regular Rhythm and Other (no murmurs on my exam)
GI: Soft and Non Tender
Genito-urinary: No Costovertebral Tender
Musculoskeletal: No Edema
Skin: Warm
Neuro: AO x 3, No Motor Deficits and Nonfocal/Grossly Intact
Psych: Calm
Impression / Plan
-
In summary, 69 yo F PMH HOCM, CAD, HTN, HLD, T2DM, nonrheumatic aortic valve stenosis, ocular migraine, obesity, ANA, hypothyroidism p/w dizziness found to have BPPV and an episode of atrial fibrillation that has spontaneously resolved after 3 hours.
Paroxysmal atrial fibrillation without RVR
- Hemodynamically stable, and no palpitations, presyncope/syncope, or chest pain
- telemetry review showed NSR throughout, HR in 70-80s
- Triggers for afib are broad: ACS, Etoh/substance, caffeine, stressors, underlying cardiomyopathy, hyperthyroidism, ANA
- Serial troponins negative thus far; EKG no clear signs of ischemia
- Hypothyroidism on levothyroxine and TSH within normal limits
- ANA but adheres closely to CPAP
- She does report increasing intake of caffeinated hot chocolate and lack of sleep a few days ago, but no EtOH
- Most likely trigger is combination of acute stress from severe vertigo in setting of increased caffeine intake. HOCM may also be contributing.
- However, it is possible that she may have ongoing paroxymsal afib that was discovered during the current presentation
- CHADsVASC score = 4, (age 65-74, female, HTN, Diabetes) and hx of HOCM doubly indicate anticoagulation (anticoagulation is indicated in HOCM regardless of CHADsVASC)
- CHADsVASC score is not used in HCM
- She recently started mavacamtem, which is associated with atrial fibrillation, but was not found to be significantly increased over placebo.
Plan:
- Offer anticoagulation with apixaban
- Reviewed with patient the risks and benefits of anticoagulation, signs/symptoms of bleeding/GI bleed/intracranial hemorrhage, as well as alternative options (e.g Watchman)
- She recently started mavacamtem, which is associated with atrial fibrillation, but was not found to be significantly increased over placebo.
- She should raise this with her prescribing provider (Dr. Carrasco, [facility]) to determine whether mavacamtem should be adjusted/discontinued.
- Already on metoprolol 50mg and 25mg for HTN, and HR within normal limits, additional rate control not needed
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
- She likely receives echocardiograms regularly for HOCM and a TTE is likely not needed.
- Recommendations are not final until discussed with Dr. Petit, cardiology attg
HOCM
- Continue mavacamtem (patient takes her own)
- She should discuss her paroxysmal afib association with mavacamtem with her prescribing provider (as above).
- She follows at [facility] (Dr. Carrasco), next appt is Jul 18
HTN
- Continue metoprolol succinate 50mg daily and 25mg qpm
HLD
- Continue statin
BPPV
per primary team
[2025-07-02 08:36] LABS: Hematocrit 39.1 % (37.0-47.0); Hemoglobin 13.1 g/dL (12.0-16.0); Mean Corp Hgb Conc. 33.5 g/dL (33.0-37.0); Mean Corpuscular Volume 87.1 fL (81.0-99.0); Nucleated Red Blood Cells % 0 %; Platelet Count 115 10^3/uL (130-400); Red Cell Dist. Width 13.2 % (11.5-14.5)
[2025-07-02 08:55] LABS: Troponin I 0.013 ng/ml
[2025-07-02 09:07] LABS: ALT (SGPT) 20 U/L (0-35); AST (SGOT) 19 U/L (14-36); Albumin 3.9 g/dl (3.5-5.0); Alkaline Phosphatase 58 U/L (38-126); Blood Urea Nitrogen 12 mg/dl (7-17); Calcium 9.0 mg/dl (8.4-10.2); Carbon Dioxide 26 mmol/L (22-30); Chloride 107 mmol/L (98-107); Glucose 90 mg/dl (70-99); HDL Cholesterol 40 mg/dl; LDL Cholesterol, Calculated 100 mg/dl; Magnesium 2.0 mg/dl (1.6-2.3); Potassium 4.1 mmol/L (3.5-5.1); Sodium 135 mmol/L (135-145); Total Protein 6.3 g/dl (6.3-8.2); Very Low Density Lipoprotein 28 mg/dl (0-30); eGFR > 60.00
[2025-07-02 09:37] LABS: TSH 2.03 uIU/ml (0.47-4.68)
[2025-07-02 09:49] LABS: Glucose - Point of Care 103 mg/dl (70-99)
[2025-07-02] MEDS: PROTONIX 40 MG PO (10:06)
[2025-07-02] MEDS: TOPROL XL 50 MG PO (10:07)
[2025-07-02] MEDS: ZOLOFT 50 MG PO (10:07)
[2025-07-02] MEDS: NON-FORMULARY ITEM 1 UNIT PO (10:07)
--- NOTE | 2025-07-02 10:07 | W.PN.HOSP.TC ---
Addendum entered and electronically signed by Yuan Garcia MD 07/02/25 22:40:
Attending Addendum:
I saw and evaluated the patient. I reviewed the resident�s note and agree with findings and plan as documented in the resident�s note. Sub: greatly improved after Teo maneuver. 2 episodes of paraesthesia today un b/l UE. self resolved. No other
neuro sxs. Full 12 point ROS reviewed and negative except as documented Exam: Vitals reviewed in chart GEN-NAd heart RRR lungs clear abd soft LE no edema NEURO AAO x 3 MS 5 sensation intact b/l UE and LE
Plan:
#BPPV-
-brain MRI-no acute CVA
-OP vestibular therapy
#New Onset A Fib-spontaneously converted back to sinus rhythm--check ECHO as OP, cards input appreciated -start Eliquis and ok for DC, f/u OP cards cont metoprolol
Type 2 DM--Mounjaro not on formulary--SSI
GERD--Cont Protonix
HoCM -- cont Camzyos--(left off home med list--pt may take her own)
ANA--CPAP, pt may take her own
Hypothyroidism--Cont Levothyroxine
Gout--Cont Allopurinol
depression- cont sertraline
Constipation--Miralax Daily--Colace Daily
DVT proph
CODE STATUS-- Full code
Dispo DC home
Time spent coordinating care, DC planning, review of DC plan of care with resident, transition of care, review of records, med rec/scripts sent electronically, consults, notes, d/w consultants/cards, nursing, and CM� 32 mins >50% of this time was
devoted to counseling and coordination of care
Original Note:
Today's Communication/Plan
-
Check Brain MRI: (No acute intracranial abnormality noted)
Check TSH:2.04 (WNL)
Check Troponin: 0.013 (Negative for PA)
Check HBA1c: 5.2 (Negative for Type 2 DM)
Diagnosed via [facility] and Treated via Teo Maneuver
Diagnosed with BPPV
Continue with home medications
Start Eliquis 5 mg twice daily daily
Follow-up with PCP 2 weeks after this visit
Patient is ready for discharge.
Assessment / Plan
Assessment / Plan
Plan
#BPPV
� Discharge her with meclizine 12.5 mg p.o.
�Ambulating well in physical therapy
� Interested in trying OP vestibular therapy.
#New onset atrial fibrillation
Triggers for afib are broad: ACS, Etoh/substance, caffeine, stressors, underlying cardiomyopathy, hyperthyroidism, ANA
She recently started mavacamtem, which is associated with atrial fibrillation
She should raise this with her prescribing provider (Dr. Carrasco, [facility]) to determine whether mavacamtem should be adjusted/discontinued.
Prescribed anticoagulation with apixaban 5 mg PO BID
Already on metoprolol 50mg and 25mg for HTN, and HR within normal limits, additional rate control not needed
[employer] to decrease caffeine intake and to continue to use CPAP
#Type 2 diabetes mellitus
-Can continue her Mounjaro injections weekly at home.
#GERD
Continue Pantaprazole 40 mg
#HOCM
Continue Camyzos
#HTN
Continue metoprolol succinate 50gm daily nd 25 qpm
#ANA
Continue using her CPAP
#Hypothyroidism
Continue levothyroxine
#Gout
' Continue allopurinol
#Constipation
Continue MiraLAX/Colace daily
#DVT prophylaxis
Apixaban 5 mg PO BID
CODE STATUS�full code
#
Anticipated Discharge: Today
Subjective/Interval History
-
Date of Service: July 02, 2025
No overnight incidents reported.
Objective Data
-
Labs:
Laboratory Results
07/02/25
08:15
WBC 5.4
Hgb 13.1
Hct 39.1
Plt Count 115 L
Sodium 135
Potassium 4.1
Chloride 107
Carbon Dioxide 26
BUN 12
Creatinine 0.9
Glucose 90
Calcium 9.0
Total Bilirubin 0.7
AST 19
ALT 20
Alkaline Phosphatase 58
Vital Signs:
Vital Signs
Temp Pulse Resp BP Pulse Ox
97.6 F 74 19 152/85 99
07/02/25 07:00 07/02/25 07:00 07/02/25 07:00 07/02/25 07:00 07/02/25 07:00
Review of Systems
-
History Source: Patient
All other systems: Reviewed and negative
EENT: Reports Tinnitis, Hearing Loss and Other (BPPV)
Respiratory: Reports No Symptoms
Cardiac: Reports No Symptoms
Abdomen/GI: Reports No Symptoms
Breast: Reports No Symptoms
Genitourinary: Reports No Symptoms
Musculoskeletal: Reports No Symptoms
Skin: Reports No Symptoms
Neuro: Reports Dizzy and Headache
Endocrine: Reports No Symptoms
Hematologic / Lymphatic: Reports No Symptoms
Allergy / Immunology: Reports No Symptoms
Physical Exam
-
General: Well Developed, Well Nourished and No Apparent Distress
HEENT: Normocephalic, Atraumatic and Other (Nystagmus)
Respiratory: Clear to Auscultation
Cardiac: Regular Rhythm, S1/S2 and Murmur (systolic murmur likely from HOCM)
Breast: Deferred by me
GI: Soft, Nontender, Nondistended and Normal Bowel Sounds
Rectal: Deferred by Provider
Genito-urinary: Deferred by me
Musculoskeletal: No Clubbing, No Cyanosis and No Edema
Skin: Warm
Neuro: AO x 3 and Nonfocal/Grossly Intact
Psych: Intact Judgement/Insight
Data Reviewed
-
CT Scan: Report Reviewed by me and Discussed with Physician
MRI: Report Reviewed by me and Discussed with Physician
Labs: Labs Reviewed by me and Discussed with Physician
[2025-07-02] MEDS: NSS 1000 IV (10:16)
--- NOTE | 2025-07-02 10:17 | CM ---
Addendum entered by Reanna Hidalgo 07/02/25 15:49:
Patient discharge to home today
IMM explained & signed. In chart
PLAN: home, no needs
to transport
Original Note:
Patient seen at bedside
IA completed
Lives with her & dtr in a 2 story home, 1 ANA ROSA, flight stairs to bedroom/bathroom
PLOF: Independent
Independent with ADL's
Denies DME
Denies VN/outpatient PT in past
PCP: Ines Partida
Pharmacy: [facility]
PLAN: Home, no needs when stable
[2025-07-02 11:00] VITALS: BP 123/74
[2025-07-02 11:10] LABS: Glycohemoglobin (HgbA1c) 5.2 % (4.0-5.9)
[2025-07-02 11:15] LABS: Glucose - Point of Care 98 mg/dl (70-99)
[2025-07-02] MEDS: ANTIVERT 12.5 MG PO (11:22)
[2025-07-02 14:59] VITALS: BP 153/86
--- NOTE | 2025-07-02 17:06 | W.DCSUMMARY ---
Addendum entered and electronically signed by Yuan Garcia MD 07/02/25 22:41:
Read, reviewed, and agree. See same day progress note for additional details.
Torin Garcia MD
Original Note:
Documented by User: Chris Paz MD, Resident 07/02/25 17:32
Discharge Summary
Discharge Data
Date of Admission: 07/01/25
Date of Discharge: 07/02/25
-
Pending Results: No
Hospital Course
69 y/o F with a PMHx of hypertrophic cardiomyopathy, CAD, HTN, HLD, Type 2 DM, hypothyroidism, and ANA presenting via EMS for evaluation of dizziness. Patient had vertigo yesterday morning which resolved spontaneously. She tried to get out of bed
this morning around 9am when her dizziness recurred. It feels like the room is spinning. Symptoms are worse with head movement and resolves if keeps her head still. She had two episodes of vomiting as well. She states she was unable to ambulate
due to the dizziness and was crawling on the floor. Her BP (140/79), HR (79) and Glucose (147) was measured a little after this incident occurred. She has a history of vertigo but symptoms have never been this severe before. Her prior episodes of
vertigo were related to migraines and she denies any headache currently. This prompted her to present to ED and vertigo severity required transport via ambulance. In the ED, CT head non contrast showed no acute intracranial abnormality. A
vestibular therapist was consulted who performed [place]/Hallpike & Teo maneuver with goggles and confirmed BPPV diagnosis. However, during her admission, an initial EKG in ED was performed and disclosed atrial fibrillation that spontaneously resolved
with a repeat EKG a few hours later. She denies chest pain, palpitations, dyspnea. Denies presyncope/syncope. Patient is interested in pursuing outpatient vestibular therapy along with her new medical management. She was prescribed all of her home
medications minus her Aspirin 81 mg and was also prescribed a new medication called Eliquis 5 mg to treat her Atrial fibrillation and Meclizine to treat her vertigo. Patient was out of bed and ambulating well with physical therapy today. Her
symptoms have subsided and she has been cleared to be discharged.
Discharge Plan
-
Patient Disposition: Home (Routine Discharge)
Discharge Diagnosis/Procedures: Hypertrophic cardiomyopathy, coronary artery disease, hypertension, hyperlipidemia, type 2 diabetes mellites, hypothyroidism, obstructive sleep apnea, depression, new onset atrial fibrillization, benign paroxysmal
positional vertigo, gastroesophageal reflux disorder, gout, Constipation
Condition: Good
Diet: Low Cholesterol
Activity: As tolerated
Driving Restrictions: As prior to admission
Bathing Restrictions: None
Blood Work: cbc with pcp in one week
Activity Restrictions/Additional Instructions:
Follow up with Dr. Thurston in 2-4 months
Please follow up with outpatient vestibular assessment, brochure was provided by inpatient PT/OT team.
Discuss with Dr. Carrasco at [facility] to determine whether mavacamtem should be adjusted/discontinued.
Patient will be scheduling an ECHO via outpatient.
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
Referrals:
Ines Partida CRNP [Family Provider, Internal Medicine]
Monica Carrasco MD [Non-Admitting Privileges, Cardiology] - in two weeks
Referral Note: Please make an appointment to determine if your mavacamtem should be adjusted/discontinued.
Jose D Thurston MD [Active, Cardiology] - in one to two months
Additional Discharge Medication Instructions: Please take Eliquis 5 mg two times a day spaced twelve hours apart.
Prescriptions:
New
Eliquis 5 mg tablet
5 mg PO BID Qty: 60 0RF
meclizine 12.5 mg Tablet
12.5 mg PO Q8HPRN PRN (Reason: vertigo) Qty: 30 0RF
metoprolol succinate 25 mg Tablet Extended Release 24 Hr
25 mg PO QPM Qty: 30 0RF
Continued
montelukast 10 MG tablet
10 mg PO HS
allopurinol 300 MG tablet
300 mg PO HS
metoprolol succinate 50 mg tablet extended release 24 hr
50 mg PO DAILY
levothyroxine 88 mcg Tablet
88 mcg PO DAILY
acetaminophen [Tylenol] 325 mg Tablet
650 mg PO Q6HPRN PRN (Reason: mild pain)
sertraline 100 mg Tablet
50 mg PO DAILY
pantoprazole [Protonix] 40 mg Tablet,Delayed Release (Dr/Ec)
40 mg PO DAILY
Repatha SureClick 140 mg/mL Pen Injector
140 mg SC Q2W
Camzyos 5 mg capsule
5 mg PO DAILY
Discontinued
aspirin 81 mg Tablet,Delayed Release (Dr/Ec)
81 mg PO DAILY
metoprolol succinate 25 mg tablet extended release 24 hr
25 mg PO QPM
Discharge Orders:
Discharge Patient (As Directed); Ordered 07/02/25
Ordered By: David Daily
Discharge Date and Time
Discharge Date/Time: 07/02/25 17:15
Print Language: GHANAIAN

Documented by User: Yuan Garcia MD 07/02/25 22:34
Discharge Summary
Discharge Data
Date of Admission: 07/01/25
Date of Discharge: 07/02/25
Discharge Plan
-
Patient Disposition: Home (Routine Discharge)
Discharge Diagnosis/Procedures: Hypertrophic cardiomyopathy, coronary artery disease, hypertension, hyperlipidemia, type 2 diabetes mellites, hypothyroidism, obstructive sleep apnea, depression, new onset atrial fibrillization, benign paroxysmal
positional vertigo, gastroesophageal reflux disorder, gout, Constipation
Condition: Good
Diet: Low Cholesterol
Activity: As tolerated
Driving Restrictions: As prior to admission
Bathing Restrictions: None
Blood Work: cbc with pcp in one week
Activity Restrictions/Additional Instructions:
Follow up with Dr. Thurston in 2-4 months
Please follow up with outpatient vestibular assessment, brochure was provided by inpatient PT/OT team.
Discuss with Dr. Carrasco at [facility] to determine whether mavacamtem should be adjusted/discontinued.
Patient will be scheduling an ECHO via outpatient.
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
Referrals:
Ines Partida CRNP [Family Provider, Internal Medicine]
Monica Carrasco MD [Non-Admitting Privileges, Cardiology] - in two weeks
Referral Note: Please make an appointment to determine if your mavacamtem should be adjusted/discontinued.
Jose D Thurston MD [Active, Cardiology] - in one to two months
Additional Discharge Medication Instructions: Please take Eliquis 5 mg two times a day spaced twelve hours apart.
Prescriptions:
New
Eliquis 5 mg tablet
5 mg PO BID Qty: 60 0RF
meclizine 12.5 mg Tablet
12.5 mg PO Q8HPRN PRN (Reason: vertigo) Qty: 30 0RF
metoprolol succinate 25 mg Tablet Extended Release 24 Hr
25 mg PO QPM Qty: 30 0RF
Continued
montelukast 10 MG tablet
10 mg PO HS
allopurinol 300 MG tablet
300 mg PO HS
metoprolol succinate 50 mg tablet extended release 24 hr
50 mg PO DAILY
levothyroxine 88 mcg Tablet
88 mcg PO DAILY
acetaminophen [Tylenol] 325 mg Tablet
650 mg PO Q6HPRN PRN (Reason: mild pain)
sertraline 100 mg Tablet
50 mg PO DAILY
pantoprazole [Protonix] 40 mg Tablet,Delayed Release (Dr/Ec)
40 mg PO DAILY
Repatha SureClick 140 mg/mL Pen Injector
140 mg SC Q2W
Camzyos 5 mg capsule
5 mg PO DAILY
Discontinued
aspirin 81 mg Tablet,Delayed Release (Dr/Ec)
81 mg PO DAILY
metoprolol succinate 25 mg tablet extended release 24 hr
25 mg PO QPM
Discharge Orders:
Discharge Patient (As Directed); Ordered 07/02/25
Ordered By: David Daily
Discharge Date and Time
Discharge Date/Time: 07/02/25 17:15
Print Language: GHANAIAN
== END 2025-07-02 17:15 | disposition home or self-care (01) | DRG 149 ==
LOC: 3 WEST ACU 20:00
PROVIDERS: Physician Assistant; ADMITTING PHYSICIAN Internal Medicine; ATTENDING PHYSICIAN Family Medicine; EMERGENCY PHYSICIAN Emergency Medicine; FAMILY PHYSICIAN Nurse Practitioner Primary Care; OTHER PHYSICIAN Internal Medicine Cardiovascular Disease
DX: H81.10 Benign paroxysmal vertigo, unspecified ear (principal); I42.1 Obstructive hypertrophic cardiomyopathy; E11.36 Type 2 diabetes mellitus with diabetic cataract; K21.9 Gastro-esophageal reflux disease without esophagitis; G47.33 Obstructive sleep apnea (adult) (pediatric); E03.9 Hypothyroidism, unspecified; M10.9 Gout, unspecified; K59.00 Constipation, unspecified; F32.A Depression, unspecified; I10 Essential (primary) hypertension; I25.10 Atherosclerotic heart disease of native coronary artery without angina pectoris; E78.00 Pure hypercholesterolemia, unspecified; I48.0 Paroxysmal atrial fibrillation; Z79.01 Long term (current) use of anticoagulants; Z79.82 Long term (current) use of aspirin
CPT/HCPCS: 70450; 70553; 80053; 80061; 82962; 83036; 83735; 84443; 84484; 85025; 93005; 96361; 96374; 96375; 97116; 99285; A9575